=== PATIENT | female | born 1990 | race Caucasian/White ===

== ENCOUNTER 2017-03-03 11:25 | Inpatient (IN) | payer OTHER ==
[2017-03-03] MEDS ORDERED: BUTORPHANOL TARTRATE 1 MG/ML VIAL IVPB ONE (13:06)
[2017-03-03 13:12] VITALS: BMI 26.6
[2017-03-03] MEDS ORDERED: DEXTROSE 5%-LACTATED RINGERS 1,000 ML IV SCH (13:15)
[2017-03-03] MEDS ORDERED: SODIUM PHOSPHATE/NA BIPHOS 133 ML ENEMA PR SCH (13:45)
[2017-03-03 13:55] LABS: BASOPHIL 0.6 % (0-2.0); EOSINOPHIL 0.3 % (0-4.5); MCH 31.3 pg (25.7-33.7); MCHC 34.3 g/dl (32.0-36.0); MEAN CELL VOLUME 91.3 fl (80-96); MEAN PLT VOLUME 8.9 fl (7.5-11.1); NEUTROPHILS 77.8 % (42.8-82.8); PLATELET COUNT 247 K/MM3 (134-434); RDW 13.6 % (11.6-15.6); WHITE BLOOD COUNT 12.6 K/mm3 (4.0-10.0)
[2017-03-03] MEDS ORDERED: DINOPROSTONE 10 MG VAGINAL SUPPOSITORY VG ONE (14:00)
[2017-03-03 14:09] LABS: INR 1.01 (0.82-1.09); PROTHROMBIN TIME (PATIENT) 11.1 SEC (9.98-11.88)
[2017-03-03 14:11] LABS: ACTIVATED PTT 30.2 SECONDS (26.9-34.4)
--- NOTE | 2017-03-03 14:16 | HP ---
Past Medical History - Primary Care Physician PCP:: Joselin Cao - Admission Chief Complaint: 27 yrs 38.3/7 weeks sent from [facility] dept due to <10%tile interval growth for delivery. Pt reported decrease FM to [facility]. 03/03/17 sono 38.3/7 weeks, Vx , placenta grade 3 , Bpp8/8, MATHEW 11.6cm, 5'4",<10%tile, UA & MCA dopplers normal flow History of Present Illness: care at [facility] . wt gain 23 lbs work Up : O Pos, Hbsag neg, Rubella immune, Varicella immune, Rpr nr, Hiv neg, Gbs neg, 2 hr Gtt 89/75 , Pap neg, Gc/ct neg , Sickle neg, UA drug screen pos for Marijuana on 08/10/16 . h/o smoking cigarettes , quit in Aug Pt had serial sono done for growth with [facility] dept . NT screen & Modified sequential neg . 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 Weeks Gestation by Dates: 37 ...EDC by Dates: 03/24/17 ...EDC by Sono: 03/14/17 (38.3//7 weeks ) Heme/Onc: Yes: Anemia Infectious Disease: No: AIDS, HIV, STD's Psych: No: Anxiety, Bipolar, Depression, Panic Endocrine: No: Diabetes Mellitus, Hyperthyroidism, Hypothyroidism - Past Surgical History Past Surgical History: Yes: None Hx Myomectomy: No Hx Transabdominal Cerclage: No - Smoking History Smoking history: Former smoker Have you smoked in the past 12 months: Yes If you are a former smoker, when did you quit?: august 2016 - Alcohol/Substance Use Hx Alcohol Use: No History of Substance Use: reports: Marijuana - Social History History of Recent Travel: No Home Medications - Allergies Allergies/Adverse Reactions: Allergies Allergy/AdvReac Type Severity Reaction Status Date / Time No Known Allergies Allergy Verified 02/18/17 12:51 - Home Medications Home Medications: Ambulatory Orders Vit No.130/Iron/FA [ Tablet] 1 mg PO DAILY 02/18/17 Physical Exam - Maternity Vital Signs: Vital Signs Temperature 98.2 F 03/03/17 13:30 Pulse Rate 69 03/03/17 13:30 Respiratory Rate 18 03/03/17 13:30 Blood Pressure 138/76 03/03/17 13:30 O2 Sat by Pulse Oximetry (%) Constitutional: Yes: Well Nourished, No Distress Eyes: Yes: WNL HENT: Yes: WNL, Normocephalic Neck: Yes: WNL Cardiovascular: Yes: WNL Lungs: Clear to auscultation Breast(s): Yes: WNL - Abdominal Exam/OB Fundal Height: 36 Number of Fetuses: Single Presentation: Vertex Contractions: No Monitor Mode: External Heart Rate (range): 140 Heart Rate Location: [facility] Category: I Accelerations: Uniform Decelerations: None - Vaginal Exam/OB Vaginal Bleediing: No Speculum Exam: No Dilatation (cm): 1 Effacement (%): 50 Amniotic Membrane Status: Intact Presentation: Vertex/Position Station: -3 (-3/-2) - Physical Exam Musculoskeletal: Yes: WNL Extremities: Yes: WNL. No: Calf Tenderness Edema: Yes Edema: LLE: Trace, RLE: Trace Integumentary: Yes: WNL Deep Tendon Reflex Grade: Normal +2 ...Motor Strength: WNL Psychiatric: Yes: WNL, Alert, Oriented - Labs Lab Results: CBC, BMP 03/03/17 13:42 Laboratory Tests 03/03/17 13:42 INR 1.01 PTT (Actin FS) 30.2 Laboratory Tests 03/03/17 13:42 Sodium 136 Potassium 4.3 Chloride 104 Carbon Dioxide 21 BUN 11 Creatinine 0.4 L Random Glucose 70 L Calcium 9.6 Laboratory Tests 03/03/17 03/03/17 03/03/17 13:15 13:42 13:42 Urine Blood Urine RBC Urine WBC Opiates Screen Negative Methadone Screen Negative Barbiturate Screen Negative Phencyclidine Screen Negative Ur Amphetamines Screen Negative MDMA (Ecstasy) Screen Negative Benzodiazepines Screen Negative Cocaine Screen Negative U Marijuana (THC) Screen Negative RPR Titer Nonreactive HIV 1&2 Antibody Screen Negative HIV P24 Antigen Negative 03/03/17 14:30 Urine Blood 2+ H Urine RBC 18 Urine WBC 71 Opiates Screen Methadone Screen Barbiturate Screen Phencyclidine Screen Ur Amphetamines Screen MDMA (Ecstasy) Screen Benzodiazepines Screen Cocaine Screen U Marijuana (THC) Screen RPR Titer HIV 1&2 Antibody Screen HIV P24 Antigen Problem List - Problems (1) with 38 completed weeks gestation Code(s): Z3A.38 - 38 WEEKS GESTATION OF (3) Elective induction of labor planned Code(s): NMC2980 - Assessment/Plan 27 yrs , 38.2 weeks, < 10 %tile growth is recommended delivery by MFM GBS neg . Plan Cervidil induction of labor , Cervidil inserted at 2.40 pm Trial vaginal delivery
[2017-03-03 14:27] LABS: CALCIUM 9.6 mg/dL (8.5-10.1); COCKROFT - GAULT 245.1825; CREATININE 0.4 mg/dL (0.55-1.02)
[2017-03-03] MEDS ORDERED: TUBERCULIN PPD 5 TU/0.1ML SYRINGE (IN PATIENT USE ONLY) ID ONE (15:00)
[2017-03-03 15:12] LABS: URINE MARIJUANA THC NEGATIVE ng/ml (CUTOFF=50)
[2017-03-03 15:28] LABS: HIV 1 & 2 AB NEGATIVE; HIV 1 AGp24 NEGATIVE
[2017-03-03 15:35] LABS: URINE APPEARANCE CLOUDY; URINE BILIRUBIN NEGATIVE (NEGATIVE); URINE COLOR YELLOW; URINE GLUCOSE (UA) NEGATIVE (NEGATIVE); URINE KETONE NEGATIVE (NEGATIVE); URINE NITRITE NEGATIVE (NEGATIVE); URINE PROTEIN NEGATIVE (NEGATIVE); URINE UROBILINOGEN NEGATIVE E.U./dl (0.2-1.0)
[2017-03-03 15:54] LABS: URINE BLOOD 2+ (NEGATIVE); URINE LEUK ESTERASE 3+ (NEGATIVE)
[2017-03-03 15:57] LABS: URINE MUCUS RARE; URINE RBC 18 /hpf (0-3); URINE WBC 71 /hpf (3-5)
[2017-03-04] MEDS ORDERED: ELECTROLYTE-148 SOLN 500 ML IV ONE (02:00)
[2017-03-04] MEDS ORDERED: ELECTROLYTE-148 SOLN 500 ML IV SCH (02:20)
[2017-03-04] MEDS ORDERED: CITRIC ACID/SODIUM CITRATE 30 ML UNIT-DOSE CUP PO ONE ×2 (02:20→04:30)
[2017-03-04] MEDS ORDERED: CEFAZOLIN (PRE-DOCKED) 50 ML IVPB SCH ×2 (02:40→03:40)
[2017-03-04] MEDS ORDERED: ELECTROLYTE-148 SOLN 1,000 ML IV SCH ×2 (02:50→04:30)
[2017-03-04] MEDS ORDERED: CEFAZOLIN (PRE-DOCKED) 50 ML IVPB ONE (03:08)
[2017-03-04] MEDS ORDERED: morphine SULFATE/Preservative Free 0.5 MG/ML (1cc Syringe) EP ONE (04:21)
[2017-03-04] MEDS ORDERED: IBUPROFEN 800 MG/8 ML IJ IVPB PRN (04:21)
[2017-03-04] MEDS ORDERED: ONDANSETRON 4 MG/2 ML VIAL IVPB PRN (04:21)
[2017-03-04] MEDS ORDERED: METHYLERGONOVINE MALEATE 0.2 MG/1 ML AMP IM PRN ×2 (04:28→04:31)
[2017-03-04] MEDS: D5W-LR W/ 20 UNITS OXYTOCIN 1,000 ML IV SCH ×2 (04:30→14:07)
[2017-03-04] MEDS ORDERED: SIMETHICONE 80 MG TAB.CHEW (FP) PO PRN (04:31)
[2017-03-04] MEDS ORDERED: IBUPROFEN 600 MG TABLET (FP) PO PRN (04:31)
[2017-03-04] MEDS ORDERED: D5W-LR W/ 20 UNITS OXYTOCIN 1,000 ML IV SCH (04:45)
--- NOTE | 2017-03-04 05:00 | PN ---
Progress Note (short form) - Note Progress Note: Nurse notified me at 1.50am that pt has late decelration, they called Dr Platt The laborist . 2.10 am I came & reviewed the FHR tracing 1.35 am prolonged late decelration for 8 min is noted down to 70 bpm( zenith ) , slowly Fhr had picke up to base line 125-140 bpm after that FHR was cat-1 . Earlier tracing noted 03/03/17 15.50 hr episode of late decel for 6 min was noted, Cervidil was removed & IV fluid was started . after that fhr tracing was cat -1 19.50 hr variable decel or loss of contact was noted 22.45 variable decel to 90 bpm for 2 min rest of the time FHR tracing was cat -1 . UC are irregular 3-5-7 min mild, pt unaware most of the times. 2.10 pelvic exam : 2 -3cm/50 % efface/vx -3/-[address] [facility] , [place] Selected Entries 03/04/17 03/04/17 00:00 01:00 Temperature 98.1 F Pulse Rate 66 72 Respiratory 18 Rate Blood Pressure 115/59 114/71 since cervidil induction was started due to 38.3/7 weeks IUGR <10%tile interval growth cervidil was removed due to prolonged late decel Once again without any inducing agents prolonged late decel occured, cx is only 2-3 cm /50 % , hence I decided to abandon trial of labor deliver the patient by c/section Impression : 38.4/7 weeks, IUGR, Non Reassuring FHR, Failed induction of labor Plan consent for primary LFTC/section preop the patient Problem List - Problems (1) with 38 completed weeks gestation Code(s): Z3A.38 - 38 WEEKS GESTATION OF (3) Elective induction of labor planned Code(s): AWK1780 -
--- NOTE | 2017-03-04 05:12 | PN ---
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 Present: Yes Name: Chase Roca Gender: Male Weight: 5 lb 7 oz Position: OP (cord in front of head & loops of cord coiled together in the front of body .) Total Hours ROM (Hrs/Mins): 2 - Feeding Plan Initial Plan: Elected not to breastfeed exclusively throughout hospitalization Remarks - Remarks Remarks: 27 yrs 38.3/7 weeks , gbs neg , care at [facility] admitted on 03/03/17 for IUGR, .<10 %tile growth Cervidil was inserted on 03/03/17 at 2.35 pm & removed 3.50 pm due to prolonged late decelration once again another prolonged late decel occurred without any meds Intraop course uneventful
--- NOTE | 2017-03-04 05:24 | OP ---
Operative Note - Note: Operative Date: 03/11/17 Pre-Operative Diagnosis: 38.4/7 weeks, IUGR, Non Reassuring FHR, Failed induction of labor Findings: 3.01 am Baby Boy, Vx Op position, cord in front of head, loops of cord coiled together near abdomen , apgar9/9 , Wt5'7", Ht 18". Both tubes & ovaries normal Dr Roca fishing tackle repairer present in OR Surgeon: Joselin Cao Strip Winder: Martin Platt Anesthesiologist/GOLF COURSE MANAGER: Chuy Pleitez Anesthesia: Spinal Specimens Removed: placenta. cord segment for cord blood gas. cord blood Estimated Blood Loss (mls): 500 Drains, Volume Out (mls): 200 (onesimo color , floey out put ) Fluid Volume Replaced (mls): 1,200 (iv ancef 1 gm prior to incision was given ) Operative Report Dictated: Yes
[2017-03-04 06:33] LABS: ARTERIAL BLOOD GAS BASE EXCESS -1.2 meq/l (-2-2); ARTERIAL BLOOD GAS pH 7.29 (7.35-7.45)
[2017-03-04 06:34] LABS: ARTERIAL BLOOD GAS HCO3 25.8 meq/L (22-26); ARTERIAL BLOOD GAS PO2 12.6 mmHg (80-100)
[2017-03-04 06:35] LABS: ARTERIAL BLD GAS O2 SATURATION 18.7 % (90-98.9)
[2017-03-04 06:37] LABS: VENOUS BLOOD GAS HCO3 25.7 meq/L (19-25); VENOUS PH 7.33 (7.32-7.42)
[2017-03-04] MEDS: CEFAZOLIN (PRE-DOCKED) 50 ML IVPB SCH ×2 (10:29→17:49)
[2017-03-04] MEDS ORDERED: oxyCODONE HCL 5 MG TABLET PO PRN ×2 (22:00)
[2017-03-04] MEDS: ENOXAPARIN NA (PORCINE) 40 MG/0.4 ML DISP.SYRIN SQ SCH (22:32)
[2017-03-05] MEDS: SIMETHICONE 80 MG TAB.CHEW (FP) PO PRN ×4 (01:11→21:02)
[2017-03-05] MEDS: ACETAMINOPHEN 325 MG TABLET (FP) PO PRN ×4 (01:11→21:03)
[2017-03-05] MEDS: IBUPROFEN 600 MG TABLET (FP) PO PRN ×4 (01:13→21:03)
[2017-03-05] MEDS ORDERED: BISACODYL 10 MG SUPP.RECT RC PRN ×2 (04:28→04:31)
--- NOTE | 2017-03-05 07:52 | OP ---
DATE OF OPERATION: 03/04/2017 PREOPERATIVE DIAGNOSIS: At 38-4/7 weeks' gestation, intrauterine growth retardation, nonreassuring heart, failed induction. OPERATION: Primary low flap transverse section. SURGEON: Joselin Cao MD CONSTRUCTION SUPERINTENDENT SURGEON: Tressa Guzman MD ANESTHESIA: Chuy Pleitez MD, spinal. ASSISTANT FINANCE DIRECTOR: Chase Roca MD FINDINGS: This is a 27-year-old 2, para 0-0-1-0 at 38-3/7 weeks admitted on March 03 due to IUGR less than 10% tile interval growth and MFM recommend delivery. Cervidil induction was done, and Cervidil was removed after 2 hours due to prolonged late deceleration. Once again the prolonged late deceleration without any medication for 8 minutes, so it was decided to deliver the patient by section. She was dilated 2 cm, 50% effaced, -3 to -2 station. DESCRIPTION OF PROCEDURE: The patient is taken to the operating room table. The abdomen was shaved and prepped. Gudino catheter was placed. Spinal anesthesia was given. She was placed in supine position. Abdomen was painted and draped in the usual manner. Pfannenstiel incision was made in the skin and subcutaneous tissue. Anterior rectus sheath was incised transversely. Bleeding points were clamped and cauterized. Rectus muscles were from the rectus sheath. Parietal peritoneum was opened vertically. The lower flap by the peritoneum was incised transversely and then lower uterine segment was incised transversely. Amniotic fluid was clear. The loop of the cord in front of the head was noted to be pushed down, and the baby was delivered from OP position at 3:01 a.m. There were loops of cord around the abdomen coiled together. The cord was clamped and cut, and the cord segment was also collected for the cord blood gas, and cord blood was collected. The placenta was removal completely with the membranes. Placenta was small and sent for pathology examination. Uterine cavity was cleaned then the uterus was closed in 2 layers. First layer was closed with a Biosyn 0 suture. Continuous sutures were taken. Second layer was closed with a Biosyn intermittent. Locking sutures were taken and vertical mattress sutures were taken. Hemostasis was checked, and the bladder peritoneum was closed with a Biosyn 0 suture. Continuous sutures were taken. Both tubes and ovaries were normal. Irrigation was done. Sponge, needle, and instrument count was correct. Closure of the abdomen was done. Parietal peritoneum was closed with a Vicryl suture. Muscles were approximated together with interrupted Vicryl suture. Hemostasis was checked, and the anterior rectus sheath was closed with a Vicryl 0 suture. Continuous sutures were taken and then subcutaneous tissue was reapproximated with interrupted suture with a Vicryl 0 suture. Then skin was approximated with brianna. Pressure dressing was given. The patient tolerated the procedure well, and she was transferred to the recovery room in stable condition. Blood clots were removed from the vagina before transferring. She received IV Ancef 1 g prior to the incision. Estimated blood loss was 500 mL and intraoperative urine output was 200 mL. It was onesimo color. Sydni [id number] MTDD
--- NOTE | 2017-03-05 08:00 | PN ---
Post Progress Note - Subjective Subjective: no c/o pain . voided number of times since orellana is taken out, no difficulty Post Day: 1 Type of Delivery: Primary C/S Vital Signs: Vital Signs Temperature 98.4 F 03/05/17 02:00 Pulse Rate 90 03/05/17 02:00 Respiratory Rate 20 03/05/17 03:00 Blood Pressure 100/56 03/05/17 02:00 O2 Sat by Pulse Oximetry (%) 100 03/04/17 06:10 Breast Exam: Yes: Soft, Other (BF ). No: Engorged Uterus: Yes: Fundus Firm, Fundus below umbilicus Abdomen/GI: Yes: Abdomen soft, Tolerating PO (clear liquids ). No: Abdominal Distention, Tender, Passing flatus Lochia: Yes: Rubra Lochia, amount: Moderate Extremities: Yes: Calves non-tender Perineum: Yes: Intact Activity: Ambulating - Labs Labs: CBC WBC 12.6 K/mm3 (4.0-10.0) H 03/03/17 13:42 RBC 4.09 M/mm3 (3.60-5.2) 03/03/17 13:42 Hgb 12.8 GM/dL (10.7-15.3) 03/03/17 13:42 Hct 37.3 % (32.4-45.2) 03/03/17 13:42 MCV 91.3 fl (80-96) 03/03/17 13:42 MCHC 34.3 g/dl (32.0-36.0) 03/03/17 13:42 RDW 13.6 % (11.6-15.6) 03/03/17 13:42 Plt Count 247 K/MM3 (134-434) 03/03/17 13:42 MPV 8.9 fl (7.5-11.1) 03/03/17 13:42 Neutrophils % 77.8 % (42.8-82.8) 03/03/17 13:42 Lymphocytes % 15.8 % (8-40) 03/03/17 13:42 Monocytes % 5.5 % (3.8-10.2) 03/03/17 13:42 Eosinophils % 0.3 % (0-4.5) 03/03/17 13:42 Basophils % 0.6 % (0-2.0) 03/03/17 13:42 Problem List - Problems (1) with 38 completed weeks gestation Code(s): Z3A.38 - 38 WEEKS GESTATION OF (3) Elective induction of labor planned Code(s): [id number] - Assessment/Plan stable ct po care cbc today pending
[2017-03-05 08:05] LABS: BASOPHIL 0.2 % (0-2.0); EOSINOPHIL 0.7 % (0-4.5); MCH 31.1 pg (25.7-33.7); MCHC 34.1 g/dl (32.0-36.0); MEAN CELL VOLUME 91.2 fl (80-96); MEAN PLT VOLUME 9.1 fl (7.5-11.1); NEUTROPHILS 77.3 % (42.8-82.8); PLATELET COUNT 188 K/MM3 (134-434); RDW 13.5 % (11.6-15.6)
--- NOTE | 2017-03-05 08:22 | PN ---
Progress Note (short form) - Note Progress Note: Anesthesia/Pain Pt seen and examined S:alert and awake comfortable O: Vital Signs Temperature 98.4 F 03/05/17 02:00 Pulse Rate 90 03/05/17 02:00 Respiratory Rate 20 03/05/17 03:00 Blood Pressure 100/56 03/05/17 02:00 O2 Sat by Pulse Oximetry (%) 100 03/04/17 06:10 CBC, BMP 03/05/17 07:00 03/03/17 13:42 A/P:Current Active Problems Elective induction of labor planned (Acute) IUGR (intrauterine growth restriction) (Acute) with 38 completed weeks gestation (Acute) s/p c section Doing well post op Ramirez Whiteside MD
[2017-03-05] MEDS: ENOXAPARIN NA (PORCINE) 40 MG/0.4 ML DISP.SYRIN SQ SCH (09:48)
[2017-03-05] MEDS: PRENATAL VITAMINS W/ FOLIC ACID TABLET (FP) PO SCH (09:48)
[2017-03-05] MEDS: FERROUS SO4 325 MG TABLET (FP) PO SCH ×2 (09:48→21:02)
[2017-03-05] MEDS ORDERED: PNEUMOC 13-VAL CONJ-DIP CRM/PF 0.5 ML DISP.SYRIN IM ONE (10:00)
[2017-03-05] MEDS ORDERED: DIPHTH,PERTUSS(ACELL),TET 0.5 ML DISP.SYRIN IM ONE (11:00)
[2017-03-05] MEDS ORDERED: PNEUMOCOCCAL 23 VACCINE 0.5 ML VIAL IM ONE (11:00)
[2017-03-05] MEDS: SENNOSIDES/DOCUSATE COMBO (SENNA PLUS) TABLET (UD) PO SCH (21:27)
[2017-03-06] MEDS: ACETAMINOPHEN 325 MG TABLET (FP) PO PRN ×3 (05:31→20:57)
[2017-03-06] MEDS: SIMETHICONE 80 MG TAB.CHEW (FP) PO PRN ×3 (05:31→20:56)
[2017-03-06] MEDS: IBUPROFEN 600 MG TABLET (FP) PO PRN ×3 (05:32→20:58)
[2017-03-06] MEDS: FERROUS SO4 325 MG TABLET (FP) PO SCH ×2 (09:19→20:59)
[2017-03-06] MEDS: PRENATAL VITAMINS W/ FOLIC ACID TABLET (FP) PO SCH (09:19)
[2017-03-06] MEDS: ENOXAPARIN NA (PORCINE) 40 MG/0.4 ML DISP.SYRIN SQ SCH (09:19)
--- NOTE | 2017-03-06 09:34 | PN ---
Post Progress Note - Subjective Subjective: no c/o pain Post Day: 2 Type of Delivery: Primary C/S Vital Signs: Vital Signs Temperature 98 F 03/06/17 08:07 Pulse Rate 65 03/06/17 08:07 Respiratory Rate 20 03/06/17 08:07 Blood Pressure 121/68 03/06/17 08:07 O2 Sat by Pulse Oximetry (%) 100 03/04/17 06:10 Breast Exam: Yes: Soft, Other (BF ). No: Engorged Uterus: Yes: Fundus Firm, Fundus below umbilicus, Non-tender Incision: Yes: Rosanna intact. No: Redness, Oozing Abdomen/GI: Yes: Abdomen soft, Passing flatus (bm done ), Tolerating PO (diet ) . No: Abdominal Distention, Tender Lochia: Yes: Rubra Lochia, amount: Moderate Extremities: Yes: Calves non-tender Perineum: Yes: Intact Activity: Ambulating - Labs Labs: CBC WBC 13.0 K/mm3 (4.0-10.0) H 03/05/17 07:00 RBC 3.60 M/mm3 (3.60-5.2) 03/05/17 07:00 Hgb 11.2 GM/dL (10.7-15.3) D 03/05/17 07:00 Hct 32.8 % (32.4-45.2) 03/05/17 07:00 MCV 91.2 fl (80-96) 03/05/17 07:00 MCHC 34.1 g/dl (32.0-36.0) 03/05/17 07:00 RDW 13.5 % (11.6-15.6) 03/05/17 07:00 Plt Count 188 K/MM3 (134-434) D 03/05/17 07:00 MPV 9.1 fl (7.5-11.1) 03/05/17 07:00 Neutrophils % 77.3 % (42.8-82.8) 03/05/17 07:00 Lymphocytes % 13.6 % (8-40) 03/05/17 07:00 Monocytes % 8.2 % (3.8-10.2) 03/05/17 07:00 Eosinophils % 0.7 % (0-4.5) D 03/05/17 07:00 Basophils % 0.2 % (0-2.0) 03/05/17 07:00 Problem List - Problems (1) with 38 completed weeks gestation Code(s): Z3A.38 - 38 WEEKS GESTATION OF (3) Elective induction of labor planned Code(s): [id number] - Assessment/Plan stable plan ct po care
[2017-03-06] MEDS: SENNOSIDES/DOCUSATE COMBO (SENNA PLUS) TABLET (UD) PO SCH (21:00)
[2017-03-07] MEDS: SIMETHICONE 80 MG TAB.CHEW (FP) PO PRN ×2 (02:36→21:53)
[2017-03-07] MEDS: IBUPROFEN 600 MG TABLET (FP) PO PRN ×3 (02:36→21:54)
[2017-03-07] MEDS: ACETAMINOPHEN 325 MG TABLET (FP) PO PRN ×3 (02:36→21:54)
[2017-03-07 08:12] LABS: BASOPHIL 0.5 % (0-2.0); EOSINOPHIL 1.1 % (0-4.5); MCH 31.9 pg (25.7-33.7); MCHC 34.7 g/dl (32.0-36.0); MEAN CELL VOLUME 92.1 fl (80-96); MEAN PLT VOLUME 9.4 fl (7.5-11.1); NEUTROPHILS 68.3 % (42.8-82.8); PLATELET COUNT 215 K/MM3 (134-434); RDW 13.6 % (11.6-15.6); WHITE BLOOD COUNT 9.5 K/mm3 (4.0-10.0)
--- NOTE | 2017-03-07 08:51 | PN ---
Post Progress Note - Subjective Subjective: c/o pain . scale 4-5/10 voiding without difficulty Post Day: 3 Type of Delivery: Primary C/S Vital Signs: Vital Signs Temperature 98.7 F 03/06/17 20:50 Pulse Rate 64 03/06/17 20:50 Respiratory Rate 18 03/06/17 20:50 Blood Pressure 133/77 03/06/17 20:50 O2 Sat by Pulse Oximetry (%) 100 03/04/17 06:10 Breast Exam: Yes: Soft, Other (BF). No: Engorged Uterus: Yes: Fundus Firm, Fundus below umbilicus, Non-tender Incision: Yes: Brianna intact. No: Redness, Oozing Abdomen/GI: Yes: Abdomen soft, Tender, Passing flatus, Tolerating PO (diet ). No: Abdominal Distention Lochia: Yes: Rubra Lochia, amount: Small Extremities: Yes: Calves non-tender Perineum: Yes: Intact Activity: Ambulating - Labs Labs: CBC WBC 9.5 K/mm3 (4.0-10.0) 03/07/17 06:00 RBC 3.68 M/mm3 (3.60-5.2) 03/07/17 06:00 Hgb 11.8 GM/dL (10.7-15.3) 03/07/17 06:00 Hct 33.9 % (32.4-45.2) 03/07/17 06:00 MCV 92.1 fl (80-96) 03/07/17 06:00 MCHC 34.7 g/dl (32.0-36.0) 03/07/17 06:00 RDW 13.6 % (11.6-15.6) 03/07/17 06:00 Plt Count 215 K/MM3 (134-434) 03/07/17 06:00 MPV 9.4 fl (7.5-11.1) 03/07/17 06:00 Neutrophils % 68.3 % (42.8-82.8) 03/07/17 06:00 Lymphocytes % 21.7 % (8-40) D 03/07/17 06:00 Monocytes % 8.4 % (3.8-10.2) 03/07/17 06:00 Eosinophils % 1.1 % (0-4.5) 03/07/17 06:00 Basophils % 0.5 % (0-2.0) 03/07/17 06:00 Problem List - Problems (1) with 38 completed weeks gestation Code(s): Z3A.38 - 38 WEEKS GESTATION OF (3) Elective induction of labor planned Code(s): [id number] - Assessment/Plan stable . Plan discharge tomorrow. remove brianna tomorrow before discharge .
[2017-03-07] MEDS: ENOXAPARIN NA (PORCINE) 40 MG/0.4 ML DISP.SYRIN SQ SCH (10:16)
[2017-03-07] MEDS: PRENATAL VITAMINS W/ FOLIC ACID TABLET (FP) PO SCH (10:16)
[2017-03-07] MEDS: FERROUS SO4 325 MG TABLET (FP) PO SCH ×2 (10:16→21:53)
[2017-03-07 21:56] VITALS: TEMP 98.4
[2017-03-07] MEDS: SENNOSIDES/DOCUSATE COMBO (SENNA PLUS) TABLET (UD) PO SCH (22:08)
--- NOTE | 2017-03-08 07:08 | PN ---
Post Progress Note - Subjective Subjective: minimal pain Type of Delivery: Primary C/S Vital Signs: Vital Signs Temperature 98.4 F 03/07/17 21:56 Pulse Rate 70 03/07/17 21:56 Respiratory Rate 20 03/07/17 21:56 Blood Pressure 117/62 03/07/17 21:56 O2 Sat by Pulse Oximetry (%) 100 03/04/17 06:10 Breast Exam: Yes: Soft Uterus: Yes: Fundus Firm Incision: Yes: Brianna intact Abdomen/GI: Yes: Abdomen soft Lochia: Yes: Rubra Lochia, amount: Small Extremities: Yes: Calves non-tender Perineum: Yes: Intact Activity: Ambulating - Labs Labs: CBC WBC 9.5 K/mm3 (4.0-10.0) 03/07/17 06:00 RBC 3.68 M/mm3 (3.60-5.2) 03/07/17 06:00 Hgb 11.8 GM/dL (10.7-15.3) 03/07/17 06:00 Hct 33.9 % (32.4-45.2) 03/07/17 06:00 MCV 92.1 fl (80-96) 03/07/17 06:00 MCHC 34.7 g/dl (32.0-36.0) 03/07/17 06:00 RDW 13.6 % (11.6-15.6) 03/07/17 06:00 Plt Count 215 K/MM3 (134-434) 03/07/17 06:00 MPV 9.4 fl (7.5-11.1) 03/07/17 06:00 Neutrophils % 68.3 % (42.8-82.8) 03/07/17 06:00 Lymphocytes % 21.7 % (8-40) D 03/07/17 06:00 Monocytes % 8.4 % (3.8-10.2) 03/07/17 06:00 Eosinophils % 1.1 % (0-4.5) 03/07/17 06:00 Basophils % 0.5 % (0-2.0) 03/07/17 06:00 Assessment/Plan as above oob dc home fu in office for brianna
[2017-03-08] MEDS: ACETAMINOPHEN 325 MG TABLET (FP) PO PRN (09:11)
[2017-03-08] MEDS: IBUPROFEN 600 MG TABLET (FP) PO PRN (09:11)
[2017-03-08] MEDS: FERROUS SO4 325 MG TABLET (FP) PO SCH (09:12)
[2017-03-08] MEDS: PRENATAL VITAMINS W/ FOLIC ACID TABLET (FP) PO SCH (09:12)
[2017-03-08 09:18] VITALS: BP 138/76; PULSE 80
[2017-03-08] MEDS: ENOXAPARIN NA (PORCINE) 40 MG/0.4 ML DISP.SYRIN SQ SCH (11:25)
--- NOTE | 2017-03-08 13:15 | PATH ---
Surgical Pathology Report Patient Name: ZARA WAGONER Med. Rec. #: [id number] /Age/Gender: 1990 (Age: 27) / F Account: [id number] Location: [facility] OBS/CASKET UPHOLSTERER Taken: 03/04/2017 Received: 03/04/2017 Reported: 03/08/2017 Physicians: Joselin Cao M.D. Specimen(s) Received PLACENTA Clinical History , 38.2 weeks SGA/IUGR Primary Final Diagnosis PLACENTA, DELIVERY: SMALL (231 gram) FOCALLY DISRUPTED THIRD TRIMESTER PLACENTA WITH SUBCHORIONIC FIBRIN DEPOSITION, THREE VESSEL UMBILICAL CORD AND UNREMARKABLE PLACENTAL MEMBRANES. Electronically Signed Hermann Amaya M.D. Gross Description The specimen is received fresh labeled placenta and is a 231 gram, 18.0 x 14.0 x 1.3 cm. placenta with attached membranes and umbilical cord. The attached membranes are villa, translucent with focal opacities and insert marginally. The umbilical cord measures 7.5 cm. in length and averages 1.1 cm. in diameter. The cord inserts eccentrically, 5 cm. to the nearest margin. No true knots or strictures are identified. Cut surface of the umbilical cord reveals 3 vessels. The surface is esteves-blue with minimal fibrin deposition and appropriate caliber vessels. The maternal surface is red-brown with focal defects. Sectioning reveals red-brown, spongy parenchyma. No lesions are identified. Shank Breaker sections are submitted in three cassettes as follows: 1- membrane rolls and umbilical cord; 2-3- full thickness sections of placenta. /03/07/2017 [facility]03/07/2017
--- NOTE | 2017-03-08 18:10 | DS ---
Physical Exam-STONE CUTTER Vital Signs: Vital Signs Temperature 98.4 F 03/08/17 09:14 Pulse Rate 80 03/08/17 09:14 Respiratory Rate 18 03/08/17 09:14 Blood Pressure 138/76 03/08/17 09:14 O2 Sat by Pulse Oximetry (%) 100 03/04/17 06:10 Constitutional: Yes: Well Nourished Eyes: Yes: WNL HENT: Yes: WNL, Normocephalic Neck: Yes: WNL Cardiovascular: Yes: WNL, Regular Rate and Rhythm Respiratory: Yes: WNL, Regular Gastrointestinal: Yes: WNL, Normal Bowel Sounds, Soft, Other (bm done). No: Distention ...Rectal Exam: Yes: WNL ....Post : Yes: Uterus firm, Uterus non-tender, Moderate lochia rubra ( perineum intact) Breast(s): Yes: WNL (attempting Bf, pumping) Musculoskeletal: Yes: WNL Extremities: Yes: WNL. No: Calf Tenderness Edema: LLE: Trace, RLE: Trace Integumentary: Yes: Tattoos Wound/Incision: Yes: Clean/Dry, Well Approximated, Steri Strips, Weldon Removed. No: Draining, Reddened, Bleeding Neurological: Yes: WNL, Alert, Oriented ...Motor Strength: WNL Psychiatric: Yes: WNL, Alert Labs: CBC, BMP 03/07/17 06:00 03/03/17 13:42 Delivery - Delivery Section: Primary, Low Flap Transverse (38.4/7 weeks, Non Reassuring FHR , IUGR, Failed Induction of labpr ,) Type of Anesthesia: Spinal Episiotomy/Laceration: None EBL (cc): 500 (orellana catheter 200ml onesimo color output ) Delivery, Single - Stages of Labor Date of Delivery: 03/04/17 Time of Delivery: 03:01 Time Placenta Delivered: 03:02 Placenta: Yes: Expressed, Uterine Exploration - Condition of Infant Chalk Machine Operator/Material Assistant Present: Yes Name: Chase Roca Infant Gender: Male Weight: 5 lb 7 oz Position: OP (cord in front of head & loops of cord coiled together in the front of body .) Total Hours ROM (Hrs/Mins): 2 - 1 Minute Total Score: 9 5 Minutes Total Score: 9 - [place] Feeding Plan Initial Plan: Elected not to breastfeed exclusively throughout hospitalization Remarks - Remarks Remarks: 27 yrs 38.3/7 weeks , gbs neg , care at [facility] admitted on 03/03/17 for IUGR, .<10 %tile growth Cervidil was inserted on 03/03/17 at 2.35 pm & removed 3.50 pm due to prolonged late decelration once again another prolonged late decel occurred without any meds Intraop course uneventful . post op course uneventful discharge 03/08/17, she plans to follow at [facility] Discharge Summary Reason For Visit: INDUCTION OF LABOR Condition: Stable - Instructions Diet, Activity, Other Instructions: Post Instructions DIET: Continue good diet high in protein, calcium, and iron rich foods. Drink at least eight (8) glasses of water daily in addition to other fluids. Ct Regular diet MEDICATIONS: Continue vitamins and iron as previously directed. Motrin and Tylenol may be taken for minor discomfort. ACTIVITY: Mild to moderate exercise may be started in two (2) weeks. Take frequent rest periods. Resume normal activity after six (6) week check up. WOUND CARE OF OPERATIVE SITE: Continue use of perineal bottle until vaginal discharge stops. Keep area clean. Shower daily. Keep abdominal wound dry. Report any drainage or redness to physician. Tub baths, tampons and douches are not permitted for [address] Breast feeding & or Bottle feeding BREAST CARE: (For those that are not breast feeding): If engorgement occurs: Wear tight fitting bra. Take Tylenol or Motrin for pain. Apply cold packs (ice in bags to each breast ) FAMILY PLANNING: There are many control alternatives to pursue and they should be discussed at your first office visit. You may resume sexual activity after your six (6) week check up. (Remember, breast feeding is not a contraceptive) NEXT PHYSICIAN APPOINTMENT: Be certain to call for a one (1) week appointment, unless otherwise directed. RTC for wound check Call Clinic or got to Emergency Dept if you have any of the following: Heavy vaginal bleeding Painful urination Leg pain Unusual odor noted to vaginal bleeding High fever Red streaking noted on breast Referrals: Joselin Cao MD [Staff Physician] - Disposition: HOME - Home Medications Comprehensive Discharge Medication List: Ambulatory Orders Vit No.130/Iron/FA [ Tablet] 1 mg PO DAILY 02/18/17 Acetaminophen [Tylenol .Regular Strength -] 650 mg PO Q4H PRN #0 tablet Ibuprofen [Motrin -] 600 mg PO Q4H PRN #30 tablet 03/07/17 Vitamins (Sjr) - 1 tab PO DAILY tablet 03/07/17
== END 2017-03-08 13:00 | disposition home or self-care (01) | DRG 540 ==
LOC: JDEL 11:25 → JLDR 11:45 → J3W 03-04 12:32
PROVIDERS: ADMIT Obstetrics & Gynecology; ATTEND Obstetrics & Gynecology
PROC: 3E0P7GC Introduction of Other Therapeutic Substance into Female Reproductive, Via Natural or Artificial Opening (ICD-10-PCS; 2017-03-03)
PROC: 10D00Z1 Extraction of Products of Conception, Low, Open Approach (ICD-10-PCS; principal; 2017-03-04)
DX: O36.5930 Maternal care for other known or suspected poor fetal growth, third trimester, not applicable or unspecified (principal); O76 Abnormality in fetal heart rate and rhythm complicating labor and delivery; O62.0 Primary inadequate contractions; Z3A.38 38 weeks gestation of pregnancy; Z37.0 Single live birth
CPT/HCPCS: 36415; 36600; 80048; 80307; 81003; 81015; 82803; 85025; 85610; 85730; 86593; 86850; 86900; 86901; 87389; 88307-TC; 90732; 94010; G0009

== ENCOUNTER 2019-10-31 11:08 | Emergency (ER) | payer OTHER ==
[2019-10-31 11:42] VITALS: BP 141/82; PULSE 59; TEMP 98.5; BMI 30.7
[2019-10-31] MEDS ORDERED: LIDOCAINE HCL 1%, 10 MG/ML (20ML VIAL) ONE (12:03)
--- NOTE | 2019-10-31 12:28 | PDOC ---
History of Present Illness - General Chief Complaint: Laceration Stated Complaint: LAC RT HAND Time Seen by Provider: 10/31/19 11:51 History Source: Patient Exam Limitations: No Limitations - History of Present Illness Initial Comments: 10/31/19 12:29 Patient is a 29-year-old female that sustained a right base of the thumb laceration while cleaning a glass today. She states she was cleaning inside the glass and it broke lacerating the base of her left thumb. The laceration is on the dorsal aspect of the hand. She states her last tetanus booster was in 2015 or 2016. She denies any numbness or tingling. She is right-hand dominant. Past History - Past Medical History Allergies/Adverse Reactions: Allergies Allergy/AdvReac Type Severity Reaction Status Date / Time No Known Allergies Allergy Verified 10/31/19 11:39 Home Medications: Ambulatory Orders Vit No.130/Iron/Folic [ Tablet] 1 mg PO DAILY 02/18/17 Acetaminophen [Tylenol .Regular Strength -] 650 mg PO Q4H PRN #0 tablet Ibuprofen [Motrin -] 600 mg PO Q4H PRN #30 tablet 03/07/17 Vitamins (Sjr) - 1 tab PO DAILY tablet 03/07/17 Asthma: No Cancer: No Cardiac Disorders: No Diabetes: No HTN: No Seizures: No Thyroid Disease: No - Psycho Social/Smoking Cessation Hx Smoking History: Current some day smoker Have you smoked in the past 12 months: Yes Number of Cigarettes Smoked Daily: 4 If you are a former smoker, when did you quit?: august 2016 Information on smoking cessation initiated: No Hx Alcohol Use: No Drug/Substance Use Hx: No Hx Substance Use Treatment: No Review of Systems - Review of Systems Comments:: 10/31/19 12:30 - Review of Systems Able to Perform ROS?: Yes Constitutional: No: Fever, Chills, Loss of Appetite, Night Sweats, Weakness Respiratory: No: Cough, Shortness of Breath, Wheezing, Sputum Production Cardiac (ROS): No: Chest Pain, Chest Tightness, Palpitations, Irregular Heart Beat, Edema ABD/GI: No: Nausea, Vomiting, Abdominal Pain, Diarrhea Musculoskeletal: No: Muscle Pain, Back Pain, Joint Pain, Muscle Weakness, Neck Pain Integumentary: No: Lesions, Rash; Right thumb laceration Neurological: No: Headache, Numbness, Tingling, Weakness, Speech Difficulties *Physical Exam - Vital Signs Last Vital Signs Temp Pulse Resp BP Pulse Ox 98.5 F 59 L 16 141/82 99 10/31/19 11:39 10/31/19 11:39 10/31/19 11:39 10/31/19 11:39 10/31/19 11:39 - Physical Exam 10/31/19 12:30 - Physical Exam General Appearance: Nourished, Appropriately Dressed, No Distress Neck: Supple, No Decreased range of motion Respiratory/Chest: Lungs Clear, Normal Breath Sounds. No Respiratory Distress, No Accessory Muscle Use Cardiovascular: Regular Rhythm, Regular Rate, S1, S2 Musculoskeletal: Normal Inspection. No Decreased Range of Motion Extremity: Normal Capillary Refill, Normal Inspection Integumentary: Normal Color, Dry. No Rash; 3 cm irregular flap laceration to the base of the right thumb on the dorsal aspect of the hand. The laceration is superficial. There is minimal active blood oozing. Minimal tenderness to palpation. No foreign body appreciated after thorough inspection. Sensation intact to the distal aspect of the finger. Patient able to flex and extend at the MCP and the interphalangeal joint without difficulty. Neurologic: safety director II-XII NML intact, Fully Oriented, Alert, Normal Mood/Affect, Normal Response Procedures - Laceration/Wound Repair Right Hand 1st digit Wound Length: 2.6 to 5.0 cm Wound Explored: clean Wound's Depth, Shape: superficial, irregular, flap Betadine Prep: Yes Anesthesia: 1% Lidocaine Amount of Anesthetic (ccs): 2 Wound Repaired With: Sutures Suture Size/Type: 5:0, nylon Number of Sutures: 6 Layer Closure: No Sterile Dressing Applied: Yes Splint Applied: No Sling Applied: No Medical Decision Making - Medical Decision Making 10/31/19 12:25 Patient is a 29-year-old female with a right thumb laceration that she sustained while cleaning a glass that broke. There were no foreign bodies appreciated in the wound. Plan: -Wound irrigated and sutured with 5-0 nylon, 6 sutures placed -No need for Boostrix as patient's last tetanus was in 2016 or 17. -Patient made aware that she must return to the ED in 7 days for suture removal. She has been given laceration instructions in the ED as well. Discharge - Discharge Information Problems reviewed: Yes Clinical Impression/Diagnosis: Laceration of right thumb Qualifiers: Encounter type: initial encounter Damage to nail status: without damage Foreign body presence: without foreign body Qualified Code(s): S61.011A - Laceration without foreign body of right thumb without damage to nail, initial encounter Condition: Stable Disposition: HOME - Follow up/Referral - Patient Discharge Instructions Patient Printed Discharge Instructions: DI for Laceration Repair Additional Instructions: Keep the wound clean and dry until Tuesday morning 11/02/2019. On Tuesday remove the dressing and wash the wound gently with warm water and soap only. Allowed to dry for about 30 minutes. Do not apply any ointments. If you are staying home, you do not need to cover the wound. If you are away from home cover the wound with a bandage. Return to the emergency department in 7 days for suture removal. - Post Discharge Activity Work/Back to School Note: Back to Work
== END 2019-10-31 12:33 | disposition home or self-care (01) ==
LOC: JERFT 11:08
PROC: 3E0234Z Introduction of Serum, Toxoid and Vaccine into Muscle, Percutaneous Approach (ICD-10-PCS; principal; 2019-10-31)
PROC: 0JQJ0ZZ Repair Right Hand Subcutaneous Tissue and Fascia, Open Approach (ICD-10-PCS; 2019-10-31)
DX: S61.011A Laceration without foreign body of right thumb without damage to nail, initial encounter (principal); W25.XXXA Contact with sharp glass, initial encounter; Y93.G1 Activity, food preparation and clean up; Y92.010 Kitchen of single-family (private) house as the place of occurrence of the external cause; Y99.8 Other external cause status
CPT/HCPCS: 99281-25

== ENCOUNTER 2019-11-07 11:07 | Emergency (ER) | payer OTHER ==
[2019-11-07 11:17] VITALS: BP 119/61; PULSE 67; TEMP 98.3; BMI 29.8
--- NOTE | 2019-11-07 11:46 | PDOC ---
History of Present Illness - General Chief Complaint: Suture/Staple Removal(Here) Stated Complaint: Suture/Staple Removal(Here) Time Seen by Provider: 11/07/19 11:33 - History of Present Illness Initial Comments: 11/07/19 11:42 29-year-old female presents for suture removal from sutures placed in her right thumb 7 days ago. She is had no sequelae since suture placement Past History - Past Medical History Allergies/Adverse Reactions: Allergies Allergy/AdvReac Type Severity Reaction Status Date / Time No Known Allergies Allergy Verified 11/07/19 11:17 Home Medications: Ambulatory Orders NK [No Known Home Medication] 11/07/19 Asthma: No Cancer: No Cardiac Disorders: No COPD: No Diabetes: No HTN: No Seizures: No Thyroid Disease: No - Psycho Social/Smoking Cessation Hx Smoking History: Current every day smoker Have you smoked in the past 12 months: Yes Number of Cigarettes Smoked Daily: 8 If you are a former smoker, when did you quit?: august 2016 Information on smoking cessation initiated: No Hx Alcohol Use: Yes Drug/Substance Use Hx: No Hx Substance Use Treatment: No Review of Systems - Review of Systems Constitutional: No: Fever *Physical Exam - Vital Signs Last Vital Signs Temp Pulse Resp BP Pulse Ox 98.3 F 67 16 119/61 98 11/07/19 11:15 11/07/19 11:15 11/07/19 11:15 11/07/19 11:15 11/07/19 11:15 - Physical Exam 11/07/19 11:43 Right thumb skin color and temperature are normal wound is healing on the dorsum of the right thumb overlying the MCP J no gross sensorimotor deficits neurovascular intact full range of motion Medical Decision Making - Medical Decision Making 11/07/19 11:43 Sutures were removed with an 11 blade and Adson pickups without complication dry sterile dressing was placed Discharge - Discharge Information Problems reviewed: Yes Clinical Impression/Diagnosis: Visit for suture removal Condition: Stable Disposition: HOME - Admission No - Follow up/Referral Referrals: Cachorro Foley MD [Primary Care Provider] - Chase Sanchez MD [Staff Physician] - - Patient Discharge Instructions Additional Instructions: Please leave the area clean and dry for the next 48 hours. After 48 hours you may gently wash the area with soap and water and pat it dry and leave it open to air. Do not apply any ointment such as bacitracin or Neosporin. Without fail please follow-up with your primary care physician in 2 to 3 days for a wound check. Return to the emergency room for further issues. - Post Discharge Activity
== END 2019-11-07 12:12 | disposition home or self-care (01) ==
LOC: JERFT 11:07
DX: Z48.02 Encounter for removal of sutures (principal)
CPT/HCPCS: 99281-25